=== PATIENT | male | born 1960 | race Caucasian/White ===

== ENCOUNTER → 2024-05-24 13:52 | Outpatient (REF) | payer SELFPAY | LOC: HWRAD 13:52 | PROVIDERS: ATTENDING PHYSICIAN Physician Assistant Medical | DX: E78.00 Pure hypercholesterolemia, unspecified (principal) | CPT/HCPCS: 75571 ==

== ENCOUNTER → 2024-09-12 07:18 | Outpatient (REF) | payer BC, SELFPAY | LOC: RCS 07:18 | PROVIDERS: ATTENDING PHYSICIAN Internal Medicine Cardiovascular Disease; FAMILY PHYSICIAN Physician Assistant Medical | DX: Z86.79 Personal history of other diseases of the circulatory system (principal) | CPT/HCPCS: 78452; 93017; A9500 ==

== ENCOUNTER → 2024-11-22 10:07 | Outpatient (REF) | payer BC, SELFPAY | LOC: HWRAD 10:07 | PROVIDERS: ATTENDING PHYSICIAN Internal Medicine Cardiovascular Disease; FAMILY PHYSICIAN Physician Assistant Medical | DX: I71.21 Aneurysm of the ascending aorta, without rupture (principal) | CPT/HCPCS: 71250 ==

== ENCOUNTER → 2025-10-21 13:18 | Outpatient (REF) | payer BC, SELFPAY | LOC: HWRAD 13:18 | PROVIDERS: ATTENDING PHYSICIAN Internal Medicine Cardiovascular Disease; FAMILY PHYSICIAN Physician Assistant Medical | DX: I71.21 Aneurysm of the ascending aorta, without rupture (principal); I10 Essential (primary) hypertension | CPT/HCPCS: 71250 ==